=== PATIENT | male | born 1985 | race Caucasian/White ===

== ENCOUNTER 2016-12-25 19:38 | Emergency (ER) | payer OTHER ==
[~2016-12-25] VITALS: Ht 170.2 cm; Wt 86.4 kg
[~2016-12-25 19:38] MED LIST: AMOX500C2 PO; HYDR-4003 PO; TRAM50TA2 PO
[2016-12-25 19:40] VITALS: BP 142/94; PULSE 64; RESP 18; O2SAT 99
--- NOTE | 2016-12-25 19:57 | ED.REPORT ---
HPI-Extremity Problem Upper Date of Service Dec 25, 2016 ED Provider: History of Present Illness: 31-year-old male here for right shoulder injury. He lifts heavy boxes for [employer] and it started hurting during work and at the end of the work yesterday. Increased more this morning and throughout the day today. He is work for [employer] for 4 years and was not doing any new movements besides moving around one particularly heavy box throughout the day. Pain increases with range of motion. He did not fall on his arm at all. Denies numbness or tingling or any other pain or injury. No previous injuries to his right arm Nursing Notes Stated Complaint: DISLOCATED SHOULDER Chief Complaint: Extremity Trauma Nursing Notes Reviewed: Yes Allergies: Coded Allergies: No Known Allergies (Unverified , 12/25/16) Scheduled Amoxicillin (Amoxicillin) 500 Mg Capsule 500 MG PO TID Scheduled PRN Hydrocodone-Acetaminophen 5-325 mg (Hydrocodone-Acetaminophen 5-325 mg) 1 Each Tablet 1 TABLET PO Q6H PRN PRN For Pain Hydrocodone-Acetaminophen 5-325 mg (Hydrocodone-Acetaminophen 5-325 mg) 1 Each Tablet 1 TABLET PO Q4H PRN PRN For Pain Tramadol (Tramadol) 50 Mg Tablet 50 MG PO Q4H PRN PRN For Pain General Time Seen by MD: 19:45 Chief Complaint Shoulder injury right Hx Obtained From: Patient Arrived By: Walk-in Onset Occurred: 2 days ago Symptom Duration: Since onset Context: Occurred at: Workplace Location: : Shoulder right Severity: Current: Severe Severity: Maximum: Severe Pertinent Negative: Pt denies other symptoms Exacerbated by: Range of motion Similar Sx Previous: No Past Medical History Past Medical History None reported Past Surgical History None reported Smoking History Current Every Day Smoker Social History Alcohol Use: Denies alcohol use Drug Use: Denies drug use Review of Systems Basic Review of Systems Eyes: Vision NL, No discharge ENT: Hearing NL, No pain, No nasal congestion, No pharyngeal pain Respiratory: No shortness of breath, No cough, No wheeze Cardiovascular: No chest pain, No dyspnea on exertion, No orthopnea, No parox noct dyspnea, No palpitations Allergy / Immune: No allergy Psychiatric: Normal thought content Constitutional: Denies: Chills, Fatigue, Fever Musculoskeletal: Reports: Extremity pain, Joint pain, Joint swelling Complete sys rev & neg: except as marked. Physical Exam Initial Vital Signs Vital Signs (First) Date Time Temp Pulse Resp B/P Pulse Ox O2 Delivery O2 Flow Rate FiO2 12/25/16 19:40 36.4 64 18 142/94 99 Room Air Initial VS: Reviewed, Vital signs normal General/Constitutional: Well-developed, Well-nourished Head / Eyes: Atraumatic, Normocephalic, PERRL Respiratory: Breath sounds normal, Clear to auscultation, No respiratory distress Cardiovascular: Regular rate & rhythm, Heart sounds normal, Intact distal pulses Skin: Warm, Dry, No cyanosis Neurologic: Alert, Oriented, Nonfocal Psychiatric: Mood/affect normal, Behavior normal, Normal thought content General/Constitutional: Awake, Alert, Well appearing Neck: Supple, Full range of motion, No swelling, Non-tender Respiratory / Chest: Breath sounds NL, Breath sounds = bilat, No respiratory distress, No rales, No rhonchi, No wheezing Cardiovascular: Heart rate NL, Regular rhythm, Heart sounds NL, Peripheral circulation NL Upper Extremity / MS: Atraumatic, Inspection NL, No swelling, No erythema, No deformity, Neurologic intact, Vascular intact, No compartment syndrome, No clubbing/cyanosis Upper Ext Brief Normals: Shoulder L exam normal Clavicle / Shoulder Girdle: Negative: AC joint swollen R, Clavicle swelling R... Right Shoulder: Positive: ROM reduced, Tenderness present... (Moderate) R shoulder with tenderness at chest wall insertion point, anterior chest wall, anterior deltoid. Can lift to shoulder height before pain is severe. adduction/abduction strength equal. can supinate/pronate. Interpretation & Diagnostics Interpretation & Diagnostics: PROCEDURE: X-RAY RIGHT SHOULDER, MINIMUM TWO VIEWS ([id number]) INDICATIONS: pain TECHNIQUE: 3 views of the shoulder were acquired. COMPARISON: None. FINDINGS: Bones: No fractures or dislocations. No suspicious bony lesions. Visualized ribs appear intact. Soft tissues: No suspicious soft tissue calcifications except a 2 x 3 mm calcification lateral humeral head likely a manifestation of calcific tendinitis. IMPRESSION: No acute disease. No trauma found. Small calcific radiodensity measuring only 2 x 3 mm lateral humeral head, possibly calcific tendinitis. Discharge & Departure Shift Change Sign-Out Imaging Studies: Imaging discussed Response to Therapy: Improved Impression: Primary Impression: Calcific tendinitis of right shoulder Disposition: Home Discharge Condition All VS Reviewed: Yes Condition: Stable Patient Instructions: Calcific Tendinitis (ED) Additional Instructions: Take ibuprofen 800 mg 3 times a day or Aleve twice a day for shoulder pain as needed. Follow-up with your PCP for further care. Physical therapy is often used to treat calcific tendinitis and could be useful to you. No lifting or use of your right arm until cleared or given restrictions by your PCP. Return to ER for severe pain, fevers or any other change in condition. Otherwise follow up with her PCP this week Referrals: Damian Li MD (PCP) EDSupervising Provider for APC: Norbert Pina MD copies to: Damian Li MD, Linnea K ARNP Dec 25, 2016 19:57
--- NOTE | 2016-12-25 20:29 | DRSVH ---
PROCEDURE: X-RAY RIGHT SHOULDER, MINIMUM TWO VIEWS ([id number]) INDICATIONS: pain TECHNIQUE: 3 views of the shoulder were acquired. COMPARISON: None. FINDINGS: Bones: No fractures or dislocations. No suspicious bony lesions. Visualized ribs appear intact. Soft tissues: No suspicious soft tissue calcifications except a 2 x 3 mm calcification lateral humer al head likely a manifestation of calcific tendinitis. IMPRESSION: No acute disease. No trauma found. Small calcific radiodensity measuring only 2 x 3 mm lateral humeral head, possibly calcific tendinitis. Dictated by: Jules Sanchez M.D. on 12/25/2016 at 20:27 Approved by: Jules Sanchez M.D. on 12/25/2016 at 20:28
[2016-12-25] MEDS ORDERED: HYDR-4003 PO (20:50)
[2016-12-25] MEDS ORDERED: HYDROcodone-APAP 5-325 mg Tablet PO ONE (20:55)
[2016-12-25 21:14] VITALS: BP 122/71; PULSE 78; RESP 16; O2SAT 98
== END 2016-12-25 21:15 | disposition home or self-care (01) ==
LOC: SED 19:38
DX: M75.31 Calcific tendinitis of right shoulder (principal); X50.0XXA Overexertion from strenuous movement or load, initial encounter; Y93.89 Activity, other specified; Y92.59 Other trade areas as the place of occurrence of the external cause; Y99.0 Civilian activity done for income or pay; F17.200 Nicotine dependence, unspecified, uncomplicated
CPT/HCPCS: 73030; 96372; 99284; J1885